=== PATIENT | female | born 1935 | race Caucasian/White ===

== ENCOUNTER → 2018-07-31 | Outpatient (CLI) | payer MEDICARE ==
[~2018-07-31] MED LIST: IOPAMIDOL 370 MG/ML 200 ML INFUS..BTL INJ ONE; SODIUM CHLORIDE 0.9% 50ML 50 ML ONE
[2018-07-31 14:44] LABS: BLOOD UREA NITROGEN 13 mg/dL (7-26); BUN/CREATININE RATIO 17 (6-25); CREATININE, SERUM 0.75 mg/dL (0.57-1.11); EST GLOMERULAR FILTRATION RATE > 60 ML/MIN (60-)
--- NOTE | 2018-07-31 17:04 | Diagnostic Imaging Report ---
EXAM: CT ABDOMEN AND PELVIS with IV CONTRAST DATE: 07/31/2018 Time stamp on Exam: 3:34 PM INDICATION: Lower abdominal pain COMPARISON: None TECHNIQUE: The abdomen and pelvis were scanned using a multidetector helical scanner. Coronal and sagittal reformations were obtained. Routine protocol performed. Technique modification was utilized to maintain the lowest dose possible to the patient. IV Contrast: 100 cc of Isovue-370 Oral Contrast: Water Radiation Dose: Total DLP 401.90 mGy*cm Estimated effective dose: DLP x 0.015 x size factor FINDINGS: LOWER THORAX: No consolidations LIVER: No masses BILIARY: The gallbladder is absent with clips in the fossa. There is intrahepatic ductal dilatation likely related to the reservoir effect. Common bile duct is dilated measuring 9.8 mm. SPLEEN: No masses PANCREAS: No masses ADRENALS: No nodules KIDNEYS: Symmetric perfusion. No enhancing masses. No hydronephrosis. GI TRACT: No distention, wall thickening or evidence of obstruction. VESSELS: Atherosclerotic vascular calcification. PERITONEUM/RETROPERITONEUM: No free air or fluid. There is some nondescript mesenteric stranding (luanne mesentery) in the left mid and lower abdomen. LYMPH NODES: Prominent retroperitoneal and mesenteric lymph nodes measure up to 12 mm in size REPRODUCTIVE ORGANS: Unremarkable BLADDER: Unremarkable SOFT TISSUES: Unremarkable BONES: No suspicious bone lesions. Degenerative changes of the spine. IMPRESSION: 1. Retroperitoneal lymph nodes are prominent measuring up to 12 mm in size. 2. Nonspecific mesenteric stranding and luanne mesentery. 3. Consider PET/CT for further evaluation to characterize the lymph node enlargement and mesenteric findings. Signed by: Dr. Jarad Ruiz DO on 07/31/2018 5:01 PM
== END ==
LOC: CT 13:57
PROVIDERS: ATTEND Emergency Medicine
DX: R10.9 Unspecified abdominal pain (principal)
CPT/HCPCS: 36415; 74177; 82565; 84520; Q9967

== ENCOUNTER → 2019-09-27 | Outpatient (CLI) | payer OTHER ==
--- NOTE | 2019-09-27 15:40 | Diagnostic Imaging Report ---
CT MAXIO FAC/PARANAS WO HISTORY: Left eye contusion; fall COMPARISON: None. TECHNIQUE: Axial CT images through the face were obtained without contrast. Coronal/sagittal reformations were created. One or more of the following dose reduction techniques were used: Automated exposure control, adjustment of the mA and/or kV according to patient size, and/or utilization of iterative reconstruction technique. DISCUSSION: Mildly displaced bilateral nasal bone fractures may be old. Old minimally displaced right zygomatic arch fracture also appears old. Otherwise, no acute fracture is seen. There are mild to moderate degenerative changes throughout the spine. Mild temporomandibular joint degenerative changes are also present, right greater than left. Torus palatinus is noted. The orbits are intact. Bilateral ocular lens replacement are noted. Both globes are slightly elongated in AP dimension. Intraorbital contents are otherwise grossly unremarkable. Specifically, no evidence for open globe injury or retrobulbar hematoma. The paranasal sinuses are clear. There is mild generalized cerebral volume loss. Mild periventricular white matter hypodensities are likely chronic microvascular ischemic changes. Carotid siphon calcifications are present. Mild to moderate bilateral carotid bulb calcified plaque is also seen. Otherwise, the visualized soft tissues and intracranial compartment are grossly unremarkable. IMPRESSION: 1. Mildly displaced bilateral nasal bone fractures may be old. 2. Otherwise, no acute osseous abnormalities. 3. No evidence for acute traumatic orbital injury. 4. Old right zygomatic arch fracture. Signed by: Dr. Jad Farmer M.D. on 09/27/2019 3:37 PM
== END ==
LOC: CT 13:44
PROVIDERS: ATTEND Emergency Medicine
DX: S05.12XA Contusion of eyeball and orbital tissues, left eye, initial encounter (principal)
CPT/HCPCS: 70486